=== PATIENT | female | born 1975 | race Caucasian/White ===

== ENCOUNTER → 2016-09-10 | Outpatient (REF) | payer OTHER | LOC: M SFHCWAGY 14:33 | PROVIDERS: ATTEND Nurse Practitioner Women's Health | DX: R87.810 Cervical high risk human papillomavirus (HPV) DNA test positive (principal); R87.610 Atypical squamous cells of undetermined significance on cytologic smear of cervix (ASC-US); R87.612 Low grade squamous intraepithelial lesion on cytologic smear of cervix (LGSIL) ==

== ENCOUNTER → 2016-09-17 | Outpatient (REF) | payer OTHER ==
[2016-09-17 11:34] LABS: MEAN CORPUSCULAR HEMOGLOBIN 29.5 pg (27.0-33.0); MEAN CORPUSCULAR HGB CONC 34.2 g/dl (32.0-36.5); MEAN CORPUSCULAR VOLUME 86.4 fl (80.0-96.0); RED CELL DISTRIBUTION WIDTH 12.8 % (11.5-14.5); WHITE BLOOD COUNT 6.5 K/mm3 (4.0-10.0)
[2016-09-17 12:05] LABS: ALBUMIN 3.7 GM/DL (3.2-5.2); ALBUMIN/GLOBULIN RATIO 1.16 (1.00-1.93); ALKALINE PHOSPHATASE 64 U/L (45-117); ALT/SGPT 17 U/L (12-78); ANION GAP 12 MEQ/L (8-16); AST/SGOT 7 U/L (15-37); BILIRUBIN,TOTAL 0.3 MG/DL (0.2-1.0); BLOOD UREA NITROGEN 7 MG/DL (7-18); CALCIUM LEVEL 8.8 MG/DL (8.5-10.1); CARBON DIOXIDE LEVEL 25 MEQ/L (21-32); CHLORIDE LEVEL 108 MEQ/L (98-107); CREATININE FOR GFR 0.88 MG/DL (0.55-1.02); GLOMERULAR FILTRATION RATE > 60.0 (>60); GLUCOSE, FASTING 88 MG/DL (70-105); POTASSIUM SERUM 4.2 MEQ/L (3.5-5.1); SODIUM LEVEL 145 MEQ/L (136-145); TOTAL PROTEIN 6.9 GM/DL (6.4-8.2)
== END ==
LOC: M SFHCPLAZ 08:09
PROVIDERS: ATTEND Nurse Practitioner Family
DX: D69.6 Thrombocytopenia, unspecified (principal); E88.81 Metabolic syndrome and other insulin resistance; E55.9 Vitamin D deficiency, unspecified

== ENCOUNTER → 2016-10-25 | Outpatient (CLI) | payer OTHER ==
--- NOTE | 2016-10-25 16:13 | REP ---
CERVICAL SPINE, SEVEN VIEWS: HISTORY: Neck pain. There is no acute fracture or subluxation. The intervertebral discs are normal in height. The neural foramina are patent. IMPRESSION: There is no acute fracture or subluxation. Signed by González Louie MD 10/25/2016 04:14 P
--- NOTE | 2016-10-25 16:15 | REP ---
THORACIC SPINE, THREE VIEWS: HISTORY: Back pain. There is no acute fracture or subluxation. The intervertebral discs are normal in height. IMPRESSION: There is no acute fracture or subluxation. Signed by González Louie MD 10/25/2016 04:19 P
== END ==
LOC: M WUC 14:16
PROVIDERS: ATTEND Nurse Practitioner Family
DX: M54.2 Cervicalgia (principal); M54.6 Pain in thoracic spine

== ENCOUNTER → 2017-01-23 | Outpatient (REF) | payer OTHER ==
[2017-01-23 12:29] LABS: ANION GAP 9 MEQ/L (8-16); BLOOD UREA NITROGEN 9 MG/DL (7-18); CALCIUM LEVEL 8.8 MG/DL (8.5-10.1); CARBON DIOXIDE LEVEL 24 MEQ/L (21-32); CHLORIDE LEVEL 108 MEQ/L (98-107); CHOLESTEROL LEVEL 136 MG/DL (<200); CREATININE FOR GFR 0.89 MG/DL (0.55-1.02); GLOMERULAR FILTRATION RATE > 60.0 (>60); GLUCOSE, FASTING 89 MG/DL (70-105); POTASSIUM SERUM 4.1 MEQ/L (3.5-5.1); SODIUM LEVEL 141 MEQ/L (136-145); TRIGLYCERIDES LEVEL 124 MG/DL (<150)
[2017-01-23 12:34] LABS: MEAN CORPUSCULAR HEMOGLOBIN 29.2 pg (27.0-33.0); MEAN CORPUSCULAR HGB CONC 33.6 g/dl (32.0-36.5); MEAN CORPUSCULAR VOLUME 86.7 fl (80.0-96.0); RED CELL DISTRIBUTION WIDTH 13.3 % (11.5-14.5); WHITE BLOOD COUNT 5.6 K/mm3 (4.0-10.0)
== END ==
LOC: M SFHCPLAZ 08:13
PROVIDERS: ATTEND Nurse Practitioner Family
DX: D69.6 Thrombocytopenia, unspecified (principal); E88.81 Metabolic syndrome and other insulin resistance

== ENCOUNTER → 2017-04-01 | Outpatient (REF) | payer OTHER ==
[2017-04-01 20:05] LABS: BASO % 0.3 % (0.0-1.0); IMMATURE GRANULOCYTE % 0.9 % (0-0); LYMPH # 2.7 10^3/uL (1.5-4.5); LYMPH % 26.5 % (24.0-44.0); MEAN CORPUSCULAR HEMOGLOBIN 28.2 pg (27.0-33.0); MEAN CORPUSCULAR VOLUME 85.7 fl (80.0-96.0); MONO # 0.8 10^3/uL (0.0-0.8); MONO % 7.6 % (0.0-5.0); NEUTROPHILS # 6.5 10^3/uL (1.8-7.7); NEUTROPHILS % 64.7 % (36.0-66.0); RED CELL DISTRIBUTION WIDTH 13.4 % (11.5-14.5); WHITE BLOOD COUNT 10.1 10^3/uL (4.0-10.0)
[2017-04-01 20:13] LABS: PLATELET COUNT, AUTOMATED 69 10^3/uL (150-450)
[2017-04-02 11:28] LABS: IMMATURE PLATELET FRACTION % 20.1 % (0.0-9.6)
== END ==
LOC: M SFHCPLAZ 16:14
PROVIDERS: ATTEND Nurse Practitioner Family
DX: D69.6 Thrombocytopenia, unspecified (principal); E88.81 Metabolic syndrome and other insulin resistance; E55.9 Vitamin D deficiency, unspecified

== ENCOUNTER → 2017-05-24 | Outpatient (CLI) | payer OTHER ==
[2017-05-24 19:36] LABS: BASO % 0.2 % (0.0-1.0); EOS % 0.1 % (0.0-3.0); IMMATURE GRANULOCYTE % 0.8 % (0-0); LYMPH # 2.5 10^3/uL (1.5-4.5); LYMPH % 30.2 % (24.0-44.0); MEAN CORPUSCULAR HEMOGLOBIN 28.4 pg (27.0-33.0); MEAN CORPUSCULAR VOLUME 83.7 fl (80.0-96.0); MONO # 0.7 10^3/uL (0.0-0.8); MONO % 8.3 % (0.0-5.0); NEUTROPHILS % 60.4 % (36.0-66.0); RED CELL DISTRIBUTION WIDTH 12.9 % (11.5-14.5); WHITE BLOOD COUNT 8.3 10^3/uL (4.0-10.0)
[2017-05-24 19:38] LABS: PLATELET COUNT, AUTOMATED 69 10^3/uL (150-450)
[2017-05-24 19:39] LABS: IMMATURE PLATELET FRACTION % 15.4 % (0.0-9.6)
== END ==
LOC: M WUC 17:34
PROVIDERS: ATTEND Internal Medicine Medical Oncology
DX: D69.6 Thrombocytopenia, unspecified (principal)

== ENCOUNTER → 2017-09-19 | Outpatient (REF) | payer BC ==
[2017-09-19 12:33] LABS: HEMATOCRIT 47.7 % (36.0-47.0); HEMOGLOBIN 15.9 g/dl (12.0-16.0); MEAN CORPUSCULAR HEMOGLOBIN 28.1 pg (27.0-33.0); MEAN CORPUSCULAR HGB CONC 33.3 g/dl (32.0-36.5); MEAN CORPUSCULAR VOLUME 84.3 fl (80.0-96.0); RED BLOOD COUNT 5.66 10^6/uL (4.00-5.40); RED CELL DISTRIBUTION WIDTH 13.3 % (11.5-14.5); WHITE BLOOD COUNT 7.1 10^3/uL (4.0-10.0)
[2017-09-19 12:38] LABS: PLATELET COUNT, AUTOMATED 81 10^3/uL (150-450)
[2017-09-19 12:40] LABS: IMMATURE PLATELET FRACTION % 17.2 % (0.0-9.6)
[2017-09-19 12:44] LABS: TOTAL 25(OH) VITAMIN D 97.2 NG/ML (30.0-100.0)
[2017-09-19 12:52] LABS: ALBUMIN 3.6 GM/DL (3.2-5.2); ALBUMIN/GLOBULIN RATIO 1.09 (1.00-1.93); ALKALINE PHOSPHATASE 75 U/L (45-117); ALT/SGPT 21 U/L (12-78); ANION GAP 9 MEQ/L (8-16); AST/SGOT 11 U/L (7-37); BILIRUBIN,TOTAL 0.3 MG/DL (0.2-1.0); BLOOD UREA NITROGEN 10 MG/DL (7-18); CALCIUM LEVEL 8.6 MG/DL (8.5-10.1); CARBON DIOXIDE LEVEL 25 MEQ/L (21-32); CHLORIDE LEVEL 107 MEQ/L (98-107); CREATININE FOR GFR 0.78 MG/DL (0.55-1.30); GLOMERULAR FILTRATION RATE > 60.0 (>58); GLUCOSE, FASTING 109 MG/DL (70-100); POTASSIUM SERUM 4.3 MEQ/L (3.5-5.1); SODIUM LEVEL 141 MEQ/L (136-145); TOTAL PROTEIN 6.9 GM/DL (6.4-8.2)
== END ==
LOC: M SFHCPLAZ 08:25
DX: D69.6 Thrombocytopenia, unspecified (principal); E55.9 Vitamin D deficiency, unspecified; E88.81 Metabolic syndrome and other insulin resistance
CPT/HCPCS: 80053

== ENCOUNTER → 2017-09-27 | Outpatient (CLI) | payer BC | LOC: M WHC 08:07 | DX: Z12.31 Encounter for screening mammogram for malignant neoplasm of breast (principal) ==

== ENCOUNTER → 2017-09-27 | Outpatient (REF) | payer BC ==
[2017-10-02 00:07] LABS: HPV HYBRID CAPTURE II Positive (Negative)
== END ==
LOC: M SFHCWAGY 08:09
DX: Z12.4 Encounter for screening for malignant neoplasm of cervix (principal)
CPT/HCPCS: G0123

== ENCOUNTER → 2017-11-25 | Outpatient (REF) | payer BC | LOC: M SFHCWAGY 15:46 | DX: N87.1 Moderate cervical dysplasia (principal) | CPT/HCPCS: 88304 ==

== ENCOUNTER → 2018-01-19 | Outpatient (CLI) | payer BC ==
[2018-01-19 17:23] LABS: BASO % 0.3 % (0.0-1.0); EOS % 0.1 % (0.0-3.0); HEMATOCRIT 46.1 % (36.0-47.0); HEMOGLOBIN 15.4 g/dl (12.0-15.5); IMMATURE GRANULOCYTE % 1.1 % (0-3.0); LYMPH # 2.6 10^3/uL (1.5-4.5); MEAN CORPUSCULAR HEMOGLOBIN 29.2 pg (27.0-33.0); MEAN CORPUSCULAR HGB CONC 33.4 g/dl (32.0-36.5); MEAN CORPUSCULAR VOLUME 87.5 fl (80.0-96.0); MONO # 0.7 10^3/uL (0.0-0.8); MONO % 7.7 % (0.0-5.0); NEUTROPHILS # 5.4 10^3/uL (1.8-7.7); NEUTROPHILS % 61.8 % (36.0-66.0); RED BLOOD COUNT 5.27 10^6/uL (4.00-5.40); RED CELL DISTRIBUTION WIDTH 13.4 % (11.5-14.5); WHITE BLOOD COUNT 8.8 10^3/uL (4.0-10.0)
[2018-01-19 17:24] LABS: PLATELET COUNT, AUTOMATED 62 10^3/uL (150-450)
[2018-01-19 17:25] LABS: IMMATURE PLATELET FRACTION % 18.2 % (0.0-9.6)
== END ==
LOC: M WUC 13:19
DX: N91.2 Amenorrhea, unspecified (principal)
CPT/HCPCS: 85049

== ENCOUNTER 2018-01-31 14:40 | Day surgery (SDC) | payer BC ==
[2018-01-31 15:20] LABS: HEMATOCRIT 47.9 % (36.0-47.0); HEMOGLOBIN 16.2 g/dl (12.0-15.5); MEAN CORPUSCULAR HEMOGLOBIN 29.1 pg (27.0-33.0); MEAN CORPUSCULAR HGB CONC 33.8 g/dl (32.0-36.5); MEAN CORPUSCULAR VOLUME 86.2 fl (80.0-96.0); RED BLOOD COUNT 5.56 10^6/uL (4.00-5.40); RED CELL DISTRIBUTION WIDTH 13.2 % (11.5-14.5); WHITE BLOOD COUNT 8.5 10^3/uL (4.0-10.0)
[2018-01-31] MEDS ORDERED: LIDOCAINE 2% INJ 100 MG/5 ML SDV (FOR ANES.) As Ordered (15:20)
[2018-01-31] MEDS ORDERED: ONDANSETRON 4MG/2ML VIAL (J2405) As Ordered (15:20)
[2018-01-31] MEDS ORDERED: MIDAZOLAM INJ 2 MG/2 ML VIAL (J2250) As Ordered (15:20)
[2018-01-31] MEDS ORDERED: KETOROLAC 60 MG/2 ML VIAL (J1885) As Ordered (15:20)
[2018-01-31] MEDS ORDERED: PROPOFOL 200 MG/20 ML VIAL As Ordered (15:20)
[2018-01-31] MEDS ORDERED: dexameTHASONE 4 MG/ML 1ML VIAL (J1100) As Ordered (15:20)
[2018-01-31] MEDS ORDERED: fentaNYL 100 MCG/2 ML INJECTION (J3010) As Ordered (15:21)
[2018-01-31 15:22] LABS: IMMATURE PLATELET FRACTION % 14.5 % (0.0-9.6); PLATELET COUNT, AUTOMATED 77 10^3/uL (150-450); PLATELET F 69
[2018-01-31] MEDS: LR 1,000 ML IV (15:29)
[2018-01-31 15:37] LABS: CONTROL LINE HCG INT CTR LINE PRESENT; HCG, SERUM QUALITATIVE NEGATIVE (NEGATIVE)
[2018-01-31] MEDS: IODINE STRONG SOLN 15 ML BTL As Ordered (16:35)
[2018-01-31] MEDS: LIDOCAINE W/EPINEPHRINE 1% 20ML VIAL As Ordered (16:51)
[2018-01-31] MEDS: SILVER NITRATE APPLICATOR As Ordered (16:51)
[2018-01-31] MEDS ORDERED: SILVER NITRATE APPLICATOR As Ordered (17:07)
[2018-01-31] MEDS ORDERED: LR 1,000 ML IV ×2 (17:30)
[2018-01-31] MEDS: PERCOCET 5MG/325MG TAB PO (17:30)
[2018-01-31] MEDS ORDERED: fentaNYL 100 MCG/2 ML INJECTION (J3010) IV (17:30)
[2018-01-31] MEDS ORDERED: ONDANSETRON 4MG/2ML VIAL (J2405) IV (17:30)
== END 2018-01-31 18:15 | disposition home or self-care (01) ==
LOC: M SDC 14:40
DX: N87.1 Moderate cervical dysplasia (principal); D69.6 Thrombocytopenia, unspecified; K59.09 Other constipation; M54.2 Cervicalgia; F41.9 Anxiety disorder, unspecified; F32.9 Major depressive disorder, single episode, unspecified; G43.909 Migraine, unspecified, not intractable, without status migrainosus; J45.909 Unspecified asthma, uncomplicated; Z88.6 Allergy status to analgesic agent; Z88.8 Allergy status to other drugs, medicaments and biological substances; Z79.899 Other long term (current) drug therapy; Z72.0 Tobacco use
CPT/HCPCS: 57461

== ENCOUNTER → 2018-01-31 | Outpatient (CLI) | payer BC ==
[2018-01-31 14:01] LABS: VITAMIN B12 LEVEL 250 PG/ML
[2018-01-31 14:02] LABS: FOLATE 9.5 NG/ML
[2018-01-31 14:07] LABS: ALBUMIN 3.8 GM/DL (3.2-5.2); ALBUMIN/GLOBULIN RATIO 1.06 (1.00-1.93); ALKALINE PHOSPHATASE 84 U/L (45-117); ALT/SGPT 21 U/L (12-78); ANION GAP 9 MEQ/L (8-16); AST/SGOT 9 U/L (7-37); BILIRUBIN,TOTAL 0.2 MG/DL (0.2-1.0); BLOOD UREA NITROGEN 6 MG/DL (7-18); CALCIUM LEVEL 8.6 MG/DL (8.5-10.1); CARBON DIOXIDE LEVEL 25 MEQ/L (21-32); CHLORIDE LEVEL 106 MEQ/L (98-107); CREATININE FOR GFR 0.85 MG/DL (0.55-1.30); GLOMERULAR FILTRATION RATE > 60.0 (>58); GLUCOSE, FASTING 123 MG/DL (70-100); POTASSIUM SERUM 4.2 MEQ/L (3.5-5.1); SODIUM LEVEL 140 MEQ/L (136-145); TOTAL PROTEIN 7.4 GM/DL (6.4-8.2)
[2018-02-06 08:11] LABS: CERULOPLASMIN 33.4 mg/dL (19.0-39.0); COPPER PLASMA 132 ug/dL (72-166); LEAD BLOOD ADULT 1 ug/dL (0-19); MERCURY LEVEL None Detected ug/L (0.0-14.9); VITAMIN B1 LEVEL WHOLE BLOOD 111.2 nmol/L (66.5-200.0); VITAMIN B6,PYRIDOXAL PHOSPHATE 2.2 ug/L (2.0-32.8); VITAMIN E(ALPHA TOCOPHEROL) 11.3 mg/L (7.0-25.1); VITAMIN E(GAMMA TOCOPHEROL) 1.4 mg/L (0.5-5.5)
== END ==
LOC: M SMT 08:15
DX: R25.1 Tremor, unspecified (principal); R41.3 Other amnesia
CPT/HCPCS: 82525

== ENCOUNTER → 2018-05-17 | Outpatient (CLI) | payer BC ==
[2018-05-17 18:02] LABS: BASO % 0.2 % (0.0-1.0); HEMOGLOBIN 15.8 g/dl (12.0-15.5); IMMATURE GRANULOCYTE % 0.6 % (0-3.0); LYMPH # 2.4 10^3/uL (1.5-4.5); LYMPH % 25.2 % (24.0-44.0); MEAN CORPUSCULAR HEMOGLOBIN 28.1 pg (27.0-33.0); MEAN CORPUSCULAR HGB CONC 32.9 g/dl (32.0-36.5); MEAN CORPUSCULAR VOLUME 85.3 fl (80.0-96.0); MONO # 0.6 10^3/uL (0.0-0.8); MONO % 6.6 % (0.0-5.0); NEUTROPHILS # 6.3 10^3/uL (1.8-7.7); NEUTROPHILS % 67.4 % (36.0-66.0); RED BLOOD COUNT 5.63 10^6/uL (4.00-5.40); RED CELL DISTRIBUTION WIDTH 13.3 % (11.5-14.5); WHITE BLOOD COUNT 9.4 10^3/uL (4.0-10.0)
[2018-05-17 18:11] LABS: LDH LACTATE DEHYDROGENASE 187 U/L (84-246)
[2018-05-17 18:44] LABS: PLATELET COUNT, AUTOMATED 83 10^3/uL (150-450)
[2018-05-17 18:45] LABS: IMMATURE PLATELET FRACTION % 14.1 % (0.0-9.6)
== END ==
LOC: M WUC 12:18
DX: D69.6 Thrombocytopenia, unspecified (principal)
CPT/HCPCS: 83615

== ENCOUNTER → 2018-08-11 | Outpatient (CLI) | payer BC ==
[~2018-08-11] MED LIST: ACET30TAB PO; BUTACAP78 PO; DESV100T3 PO; DRIS50003 PO; TOPA200T7 PO; TRAZ10TA PO
--- NOTE | 2018-08-12 06:04 | REP ---
Clinical: Polycythemia and thrombocytopenia. Technique: Real time garcia scale ultrasound examination using curved array transducer. Findings: Liver, spleen, and pancreas are normal in contour, size, echogenicity and overall appearance. No hepatic, pancreatic, or splenic lesions are identified. Spleen measures 11.6 cm maximal length. Gallbladder is normal and without gallstones, wall thickening, or pericholecystic fluid. No biliary ductal dilatation is appreciated and the common bile duct measures 3.1 mm diameter. The bilateral kidneys are normal in reniform shape without hydronephrosis. Right kidney measures 11.3 x 4.3 x 3.2 cm with suggestions for duplicated collecting system. Left kidney measures 11.1 x 4.7 x 4.7 cm. Abdominal aorta is normal and measures 1.7 cm maximal diameter. No ascites. Impression: Essentially normal complete abdominal ultrasound. 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 Electronically Signed by John Wihte MD 08/12/2018 05:56 A
== END ==
LOC: M RAD 07:41
PROVIDERS: ATTEND Nurse Practitioner Family
DX: D69.6 Thrombocytopenia, unspecified (principal)

== ENCOUNTER 2018-10-24 10:58 | Day surgery (SDC) | payer BC ==
[~2018-10-24] VITALS: Ht 167.6 cm; Wt 68.9 kg
[~2018-10-24 10:58] MED LIST changes: +ACET-716 PO; -ACET30TAB PO; +NS 1,000 ML IV ONE
[2018-10-24] MEDS ORDERED: PROPOFOL 200 MG/20 ML VIAL As Ordered ONE (13:31)
[2018-10-24] MEDS ORDERED: fentaNYL 100 MCG/2 ML INJECTION (J3010) As Ordered ONE (13:31)
[2018-10-24] MEDS ORDERED: LIDOCAINE 2% INJ 100 MG/5 ML SDV (FOR ANES.) As Ordered ONE (13:31)
--- NOTE | 2018-10-24 13:41 | ROOR ---
Patient Name: Alexis Gallegos Procedure Date: 10/24/2018 1:27 PM Date of : 1975 Age: 43 Room: [facility] Gender: Female Note Status: Finalized Procedure: Upper GI endoscopy Indications: Iron deficiency anemia Providers: Zack SCHAFFER MD Referring MD: Tia Sykes NP Requesting Provider: Medicines: Monitored Anesthesia Care Complications: No immediate complications. Procedure: Pre-Anesthesia Assessment: - The heart rate, respiratory rate, oxygen saturations, blood pressure, adequacy of pulmonary ventilation, and response to care were monitored throughout the procedure. The Endoscope was introduced through the mouth, and advanced to the second part of duodenum. The upper GI endoscopy was accomplished without difficulty. The patient tolerated the procedure well. Findings: Diffuse mildly erythematous mucosa without bleeding was found in the gastric antrum. This was biopsied with a cold forceps for histology. The exam of the stomach was otherwise normal. The examined esophagus was normal. The examined duodenum was normal. Biopsies for histology were taken with a cold forceps for evaluation of celiac disease. Impression: - Essentially normal stomach with erythematous mucosa in the antrum. Biopsied. - Normal esophagus. - Normal examined duodenum. Biopsied. Recommendation: - Await pathology results. - Observe patient's clinical course. Zack Schaffer MD Zcak SCHAFFER MD 10/24/2018 1:40:54 PM Electronically signed by Zack SCHAFFER MD Number of Addenda: 0 Note Initiated On: 10/24/2018 1:27 PM Estimated Blood Loss: Estimated blood loss: none.
--- NOTE | 2018-10-24 13:58 | ROOR ---
Patient Name: Alexis Gallegos Procedure Date: 10/24/2018 1:28 PM Date of : 1975 Age: 43 Room: [facility] Gender: Female Note Status: Finalized Procedure: Colonoscopy Indications: Iron deficiency anemia, Incidental constipation noted Providers: Zack SCHAFFER MD Referring MD: Tia Sykes NP Requesting Provider: Medicines: Monitored Anesthesia Care Complications: No immediate complications. Procedure: Pre-Anesthesia Assessment: - The heart rate, respiratory rate, oxygen saturations, blood pressure, adequacy of pulmonary ventilation, and response to care were monitored throughout the procedure. The Colonoscope was introduced through the anus and advanced to 8 cm into the ileum. The colonoscopy was performed without difficulty. The patient tolerated the procedure well. The quality of the bowel preparation was good. Findings: The perianal and digital rectal examinations were normal. Two sessile polyps were found in the sigmoid colon and ascending colon. The polyps were 3 to 5 mm in size. These polyps were removed with a cold snare. Resection and retrieval were complete. Small Internal Hemorrhoids. The exam was otherwise without abnormality on direct and retroflexion views. Impression: - Two 3 to 5 mm polyps in the sigmoid colon and in the ascending colon, removed with a cold snare. Resected and retrieved. - Small Internal Hemorrhoids. - The examination was otherwise normal on direct and retroflexion views. Recommendation: - Await pathology results. - Repeat colonoscopy in 5 years for surveillance. - Telephone endoscopist for pathology results in 2 weeks. Zack Schaffer MD Zack SCHAFFER MD 10/24/2018 1:58:43 PM Electronically signed by Zack SCHAFFER MD Number of Addenda: 0 Note Initiated On: 10/24/2018 1:28 PM Estimated Blood Loss: Estimated blood loss: none.
[2018-10-24 14:20] VITALS: BP 130/71
== END 2018-10-24 14:30 | disposition home or self-care (01) ==
LOC: M OPP 10:58
PROVIDERS: ATTEND Internal Medicine Gastroenterology
DX: D12.5 Benign neoplasm of sigmoid colon (principal); D12.2 Benign neoplasm of ascending colon; D50.9 Iron deficiency anemia, unspecified; K31.89 Other diseases of stomach and duodenum; K64.8 Other hemorrhoids; D69.3 Immune thrombocytopenic purpura; Z79.899 Other long term (current) drug therapy; Z88.8 Allergy status to other drugs, medicaments and biological substances; F17.210 Nicotine dependence, cigarettes, uncomplicated
CPT/HCPCS: 43239; 45385; 88305; J3010

== ENCOUNTER → 2018-11-19 | Outpatient (CLI) | payer BC ==
[~2018-11-19] MED LIST changes: -NS 1,000 ML IV ONE
--- NOTE | 2018-11-19 16:21 | REPMRS ---
Patient History The patient states she had a clinical breast exam in 11/2018. Family history of breast cancer under age 50 in maternal aunt, prostate cancer and colorectal cancer in maternal grandfather. Taking hormonal contraceptives for 4 years. Digital Woman Screen Mammo: November 19, 2018 - Exam #: [id number] Bilateral CC and MLO view(s) were taken. Technologist: Bree Linares, Technologist Prior study comparison: September 27, 2017, digital woman screen mammo performed at [facility]. March 2013, digital mammo diagnostic bilateral, performed at [facility]. FINDINGS: There are scattered fibroglandular densities. There has been no change in the appearance of the mammogram from the prior studies. There is a mild amount of scattered fibroglandular density which is fairly symmetric. There is no interval development of dominant mass, architectural distortion, or clustered microcalcification suggestive of malignancy. 3-D tomosynthesis shows no additional findings. Assessment: BI-RADS/ACR category 1 mammogram. Negative Mammogram. Recommendation Routine screening mammogram of both breasts in 1 year (for women over age 40). This patient's Lifetime Breast Cancer RIsk is estimated at 14.5 %. This mammogram was interpreted with the aid of an FDA-approved computer-aided dectection system. Electronically Signed By: Colby Rust MD 11/19/18 [id number]
== END ==
LOC: M WHC 14:50
PROVIDERS: ATTEND Nurse Practitioner Family
DX: Z12.31 Encounter for screening mammogram for malignant neoplasm of breast (principal); Z79.3 Long term (current) use of hormonal contraceptives

== ENCOUNTER → 2018-11-19 | Outpatient (REF) | payer BC ==
[2018-11-22 14:30] LABS: HPV HYBRID CAPTURE II Positive (Negative)
== END ==
LOC: M SFHCWAGY 15:08
PROVIDERS: ATTEND Nurse Practitioner Family
DX: Z12.4 Encounter for screening for malignant neoplasm of cervix (principal)
CPT/HCPCS: 87624; G0123

== ENCOUNTER → 2018-12-23 | Outpatient (CLI) | payer BC ==
[2018-12-23 20:21] LABS: BASO % 0.4 % (0.0-1.0); HEMOGLOBIN 16.2 g/dl (12.0-15.5); LYMPH # 2.3 10^3/uL (1.5-4.5); LYMPH % 27.4 % (24.0-44.0); MEAN CORPUSCULAR HEMOGLOBIN 29.6 pg (27.0-33.0); MEAN CORPUSCULAR HGB CONC 33.8 g/dl (32.0-36.5); MEAN CORPUSCULAR VOLUME 87.8 fl (80.0-96.0); MONO # 0.5 10^3/uL (0.0-0.8); MONO % 6.1 % (0.0-5.0); NEUTROPHILS # 5.5 10^3/uL (1.8-7.7); RED BLOOD COUNT 5.47 10^6/uL (4.00-5.40); WHITE BLOOD COUNT 8.4 10^3/uL (4.0-10.0)
[2018-12-23 20:26] LABS: ALBUMIN 3.7 GM/DL (3.2-5.2); ALT/SGPT 27 U/L (12-78); BILIRUBIN,TOTAL 0.3 MG/DL (0.2-1.0); BLOOD UREA NITROGEN 8 MG/DL (7-18); CALCIUM LEVEL 8.5 MG/DL (8.5-10.1); CARBON DIOXIDE LEVEL 27 MEQ/L (21-32); CHLORIDE LEVEL 107 MEQ/L (98-107); CREATININE FOR GFR 0.78 MG/DL (0.55-1.30); GLOMERULAR FILTRATION RATE > 60.0 (>58); GLUCOSE, FASTING 80 MG/DL (70-100); POTASSIUM SERUM 3.7 MEQ/L (3.5-5.1); SODIUM LEVEL 139 MEQ/L (136-145); TOTAL PROTEIN 7.1 GM/DL (6.4-8.2)
[2018-12-23 20:30] LABS: PLATELET COUNT, AUTOMATED 65 10^3/uL (150-450)
[2018-12-24 10:21] LABS: TOTAL 25(OH) VITAMIN D 31.3 NG/ML (30.0-100.0)
== END ==
LOC: M WUC 17:14
PROVIDERS: ATTEND Nurse Practitioner Family
DX: E55.9 Vitamin D deficiency, unspecified (principal); D69.6 Thrombocytopenia, unspecified; E88.81 Metabolic syndrome and other insulin resistance

== ENCOUNTER → 2019-03-30 | Outpatient (REF) | payer BC | LOC: M SFHCWAGY 14:31 | PROVIDERS: ATTEND Nurse Practitioner Women's Health | DX: R87.810 Cervical high risk human papillomavirus (HPV) DNA test positive (principal); Z98.890 Other specified postprocedural states ==

== ENCOUNTER → 2019-04-14 | Outpatient (CLI) | payer BC ==
[2019-04-14 21:00] LABS: BASO % 0.3 % (0.0-1.0); HEMATOCRIT 48.2 % (36.0-47.0); HEMOGLOBIN 16.1 g/dl (12.0-15.5); LYMPH # 2.6 10^3/uL (1.5-5.0); LYMPH % 27.3 % (24.0-44.0); MEAN CORPUSCULAR HEMOGLOBIN 29.1 pg (27.0-33.0); MEAN CORPUSCULAR HGB CONC 33.4 g/dl (32.0-36.5); MEAN CORPUSCULAR VOLUME 87.2 fl (80.0-96.0); MONO # 0.8 10^3/uL (0.0-0.8); MONO % 8.1 % (0.0-5.0); NEUTROPHILS % 63.6 % (36.0-66.0); RED BLOOD COUNT 5.53 10^6/uL (4.00-5.40); WHITE BLOOD COUNT 9.5 10^3/uL (4.0-10.0)
[2019-04-14 21:06] LABS: PLATELET COUNT, AUTOMATED 78 10^3/uL (150-450)
== END ==
LOC: M WUC 17:20
PROVIDERS: ATTEND Internal Medicine Hematology & Oncology
DX: D69.3 Immune thrombocytopenic purpura (principal)

== ENCOUNTER → 2019-06-28 | Outpatient (CLI) | payer BC ==
[2019-06-28 13:21] LABS: HEMATOCRIT 48.1 % (36.0-47.0); HEMOGLOBIN 15.2 g/dl (12.0-15.5); MEAN CORPUSCULAR HEMOGLOBIN 28.4 pg (27.0-33.0); MEAN CORPUSCULAR HGB CONC 31.6 g/dl (32.0-36.5); MEAN CORPUSCULAR VOLUME 89.9 fl (80.0-96.0); RED BLOOD COUNT 5.35 10^6/uL (4.00-5.40); WHITE BLOOD COUNT 7.7 10^3/uL (4.0-10.0)
[2019-06-28 13:27] LABS: ALBUMIN 3.3 GM/DL (3.2-5.2); ALT/SGPT 15 U/L (12-78); BILIRUBIN,TOTAL 0.4 MG/DL (0.2-1.0); BLOOD UREA NITROGEN 14 MG/DL (7-18); CALCIUM LEVEL 8.5 MG/DL (8.5-10.1); CARBON DIOXIDE LEVEL 25 MEQ/L (21-32); CHLORIDE LEVEL 111 MEQ/L (98-107); CHOLESTEROL LEVEL 142 MG/DL (<200); CHOLESTEROL RISK RATIO 3.641 (<5); CREATININE FOR GFR 0.85 MG/DL (0.55-1.30); GLOMERULAR FILTRATION RATE > 60.0 (>58); GLUCOSE, FASTING 101 MG/DL (70-100); HDL CHOLESTEROL 39 MG/DL (>40); LDL CHOLESTEROL 70 MG/DL (<100); NON-HDL-C 103 MG/DL; POTASSIUM SERUM 4.4 MEQ/L (3.5-5.1); SODIUM LEVEL 142 MEQ/L (136-145); TOTAL PROTEIN 6.3 GM/DL (6.4-8.2); TRIGLYCERIDES LEVEL 163 MG/DL (<150)
[2019-06-28 14:01] LABS: PLATELET COUNT, AUTOMATED 79 10^3/uL (150-450)
[2019-06-29 10:04] LABS: FOLATE 4.9 NG/ML; TOTAL 25(OH) VITAMIN D 42.6 NG/ML (30.0-100.0); VITAMIN B12 LEVEL 141 PG/ML
== END ==
LOC: M WUC 08:42
PROVIDERS: ATTEND Nurse Practitioner Family
DX: D69.6 Thrombocytopenia, unspecified (principal); E88.81 Metabolic syndrome and other insulin resistance; E78.1 Pure hyperglyceridemia; E55.9 Vitamin D deficiency, unspecified

== ENCOUNTER → 2019-07-10 | Outpatient (CLI) | payer BC ==
[~2019-07-10] MED LIST changes: +DEPO150I IM; +LINZ72CA PO; +VITA50005 PO
--- NOTE | 2019-07-10 11:47 | REP ---
Clinical: Abnormal vaginal bleeding. Technique: Transabdominal pelvic ultrasound followed by transvaginal examination for better evaluation of the endometrium and adnexa with color Doppler evaluation of the ovaries. Findings: The bladder is normal and measures 11.8 x 7.9 x 9.9 cm. Heterogeneous anteverted uterus measures 7.0 x 3.4 x 5.7 cm. Endometrial complex measures 3.6 mm thickness. The bilateral ovaries are normal in vascularity without evidence for torsion. Right ovary measures 2.4 x 1.2 x 1.3 cm (RI 0.59) and includes 1.2 cm simple cyst. Left ovary measures 4.4 x 1.9 x 2.7 cm (RI 0.60) and includes 3.3 x 2.2 x 2.7 cm cyst. No pelvic fluid or adnexal mass lesion. Impression: Heterogeneous anteverted uterus. Ovaries demonstrate solitary cysts without torsion. Electronically Signed by John White MD 07/10/2019 11:38 A
== END ==
LOC: M RAD 09:40
PROVIDERS: ATTEND Obstetrics & Gynecology
DX: N93.9 Abnormal uterine and vaginal bleeding, unspecified (principal); N83.201 Unspecified ovarian cyst, right side; N83.202 Unspecified ovarian cyst, left side

== ENCOUNTER 2019-07-24 06:17 | Day surgery (SDC) | payer BC ==
[~2019-07-24] VITALS: Ht 167.6 cm; Wt 69.4 kg
[~2019-07-24 06:17] MED LIST changes: +LIDOCAINE 1% MDV 20ML VIAL SQ PRN; +LR 1,000 ML IV ONE; -TRAZ10TA PO; +TRAZ1TAB12 PO; +ceFAZolin SOD 2 GM in IV 1 EA IV ONE
[2019-07-24 06:43] LABS: HEMATOCRIT 50.2 % (36.0-47.0); HEMOGLOBIN 16.2 g/dl (12.0-15.5); MEAN CORPUSCULAR HEMOGLOBIN 28.4 pg (27.0-33.0); MEAN CORPUSCULAR HGB CONC 32.3 g/dl (32.0-36.5); MEAN CORPUSCULAR VOLUME 88.1 fl (80.0-96.0); PLATELET COUNT, AUTOMATED 107 10^3/uL (150-450); WHITE BLOOD COUNT 7.3 10^3/uL (4.0-10.0)
[2019-07-24] MEDS ORDERED: METHYLENE BLUE 0.5% (5MG/ML) 10 ML AMP (PROVAYBLUE)(Q9968 PER 1MG) As Ordered ONE (07:08)
[2019-07-24] MEDS ORDERED: BUPIVACAINE HCL 0.25% 30 ML VIAL As Ordered ONE (07:08)
[2019-07-24 07:16] LABS: HCG, SERUM QUALITATIVE NEGATIVE (NEGATIVE)
[2019-07-24] MEDS ORDERED: ONDANSETRON 4MG/2ML VIAL (J2405) As Ordered ONE (07:51)
[2019-07-24] MEDS ORDERED: LIDOCAINE 2% INJ 100 MG/5 ML SDV (FOR ANES.) As Ordered ONE (07:51)
[2019-07-24] MEDS ORDERED: ROCURONIUM BROMIDE 50 MG/5 ML VIAL As Ordered ONE (07:51)
[2019-07-24] MEDS ORDERED: MIDAZOLAM INJ 2 MG/2 ML VIAL (J2250) As Ordered ONE (07:51)
[2019-07-24] MEDS ORDERED: propofoL 200 MG/20 ML VIAL As Ordered ONE (07:51)
[2019-07-24] MEDS ORDERED: HYDROmorphone HCL 2 MG/ML 1ML VIAL (J1170) As Ordered ONE (07:51)
[2019-07-24] MEDS ORDERED: fentaNYL 100 MCG/2 ML INJECTION (J3010) As Ordered ONE (07:51)
[2019-07-24] MEDS ORDERED: ACETAMINOPHEN 1000MG 100ML IV BTL (OFIRMEV) (J0131 PER 10MG) As Ordered ONE (07:51)
[2019-07-24] MEDS ORDERED: dexameTHASONE 4 MG/ML 1ML VIAL (J1100) As Ordered ONE (07:51)
[2019-07-24] MEDS ORDERED: ePHEDrine SULFATE 25 MG/5 ML(5MG/ML) SYRINGE As Ordered ONE (08:08)
[2019-07-24] MEDS ORDERED: SUGAMMADEX SODIUM 500 MG/5 ML VIAL (BRIDION) As Ordered ONE (08:37)
[2019-07-24] MEDS ORDERED: DOCUSATE SODIUM 100 MG CAP PO SCH (09:00)
[2019-07-24] MEDS ORDERED: LR 1,000 ML IV SCH ×2 (09:48→10:00)
[2019-07-24] MEDS ORDERED: HYDROMORPHONE HCL 0.5 MG/ 0.5 ML SYRINGE (J1170 PER 1) IV PRN (10:00)
[2019-07-24] MEDS ORDERED: ONDANSETRON 4 MG TAB (S0181) PO PRN (10:00)
[2019-07-24] MEDS ORDERED: PERCOCET 5MG/325MG TAB PO PRN ×2 (10:00)
[2019-07-24] MEDS ORDERED: PROMETHAZINE INJ 25 MG/ML VIAL (J2550) IV PRN (10:00)
[2019-07-24] MEDS ORDERED: ONDANSETRON 4MG/2ML VIAL (J2405) IV PRN (10:00)
[2019-07-24] MEDS ORDERED: fentaNYL 100 MCG/2 ML INJECTION (J3010) IV PRN (10:00)
[2019-07-24] MEDS ORDERED: oxyCODONE 5MG TAB PO PRN (10:00)
[2019-07-24] MEDS ORDERED: METOCLOPRAMIDE INJ 10MG/2ML VIAL (J2765) IV PRN (10:00)
[2019-07-24 10:25] VITALS: BP 110/70
[2019-07-24 10:55] VITALS: BP 106/71
[2019-07-24 11:55] VITALS: BP 110/68
[2019-07-24 12:55] VITALS: BP_SYST 108; BP_SYST 114; BP_DIAS 70
[2019-07-24 15:00] VITALS: BP 111/78
[2019-07-24] MEDS ORDERED: PERCOCET PO (15:29)
[2019-07-24] MEDS ORDERED: traZODone 100 MG TAB PO SCH (21:00)
== END 2019-07-24 16:30 | disposition home or self-care (01) ==
LOC: M SDC 06:17 → M PED 10:25 → M SDC 16:30
PROVIDERS: ATTEND Obstetrics & Gynecology
DX: N87.9 Dysplasia of cervix uteri, unspecified (principal); Q50.5 Embryonic cyst of broad ligament; G43.909 Migraine, unspecified, not intractable, without status migrainosus; K76.0 Fatty (change of) liver, not elsewhere classified; D69.3 Immune thrombocytopenic purpura; K59.09 Other constipation; N81.10 Cystocele, unspecified; F41.9 Anxiety disorder, unspecified; F32.9 Major depressive disorder, single episode, unspecified; F17.210 Nicotine dependence, cigarettes, uncomplicated; Z88.8 Allergy status to other drugs, medicaments and biological substances; Z79.899 Other long term (current) drug therapy
CPT/HCPCS: 36415; 58571; 58662; 84703; 85027; 86850; 86900; 86901; 88307; 96360; 96361; J0131; J0690; J1100; J1170; J2250; J2405; J3010

== ENCOUNTER → 2019-10-09 | Outpatient (CLI) | payer BC ==
[~2019-10-09] MED LIST changes: -LIDOCAINE 1% MDV 20ML VIAL SQ PRN; -LR 1,000 ML IV ONE; +PERCOCET PO; -ceFAZolin SOD 2 GM in IV 1 EA IV ONE
[2019-10-09 20:24] LABS: BASO % 0.2 % (0.0-1.0); HEMATOCRIT 47.1 % (36.0-47.0); HEMOGLOBIN 15.7 g/dl (12.0-15.5); LYMPH # 2.5 10^3/uL (1.5-5.0); LYMPH % 28.3 % (24.0-44.0); MEAN CORPUSCULAR HEMOGLOBIN 29.4 pg (27.0-33.0); MEAN CORPUSCULAR HGB CONC 33.3 g/dl (32.0-36.5); MEAN CORPUSCULAR VOLUME 88.2 fl (80.0-96.0); MONO # 0.7 10^3/uL (0.0-0.8); MONO % 8.5 % (0.0-5.0); NEUTROPHILS # 5.4 10^3/uL (1.5-8.5); PLATELET COUNT, AUTOMATED 43 10^3/uL (150-450); RED BLOOD COUNT 5.34 10^6/uL (4.00-5.40); WHITE BLOOD COUNT 8.7 10^3/uL (4.0-10.0)
[2019-10-12 09:52] LABS: FOLATE > 24.0 NG/ML (>5.4); VITAMIN B12 LEVEL 612 PG/ML (247-911)
== END ==
LOC: M WUC 17:41
PROVIDERS: ATTEND Nurse Practitioner Family
DX: E53.8 Deficiency of other specified B group vitamins (principal)

== ENCOUNTER → 2019-11-21 | Outpatient (CLI) | payer BC ==
[2019-11-21 17:19] LABS: HEMATOCRIT 46.6 % (36.0-47.0); HEMOGLOBIN 15.9 g/dl (12.0-15.5); MEAN CORPUSCULAR HEMOGLOBIN 29.9 pg (27.0-33.0); MEAN CORPUSCULAR HGB CONC 34.1 g/dl (32.0-36.5); MEAN CORPUSCULAR VOLUME 87.8 fl (80.0-96.0); RED BLOOD COUNT 5.31 10^6/uL (4.00-5.40); WHITE BLOOD COUNT 9.7 10^3/uL (4.0-10.0)
[2019-11-21 17:21] LABS: PLATELET COUNT, AUTOMATED 55 10^3/uL (150-450)
[2019-11-23 11:23] LABS: FOLATE 15.1 NG/ML; TOTAL 25(OH) VITAMIN D 32.4 NG/ML (30.0-100.0)
== END ==
LOC: M WUC 15:04
PROVIDERS: ATTEND Nurse Practitioner Family
DX: D69.6 Thrombocytopenia, unspecified (principal); E53.8 Deficiency of other specified B group vitamins; E55.9 Vitamin D deficiency, unspecified

== ENCOUNTER → 2019-12-18 | Outpatient (CLI) | payer BC ==
[~2019-12-18] MED LIST changes: +CVS5000S2 PO; +FOLI1TAB11; +GALC120S; +TOPI100T9
--- NOTE | 2019-12-18 17:02 | REPMRS ---
Patient History The patient states she had a clinical breast exam in December 2019. Family history of breast cancer under age 50 in maternal aunt, prostate cancer and colorectal cancer in maternal grandfather. Took hormonal contraceptives for 4 years. 3D TOMOSYNTHESIS WAS PERFORMED. The Case [place] lifetime risk for breast cancer is 14.3%. VOLPARA DENSITY B. Digital Woman Screen Mammo: December 18, 2019 - Exam #: [id number] Bilateral CC and MLO view(s) were taken. Technologist: Erica Livingston, Technologist Prior study comparison: November 19, 2018, bilateral digital woman screen mammo performed at [facility]. September 27, 2017, digital woman screen mammo performed at [facility]. FINDINGS: There are scattered fibroglandular densities. There has been no change in the appearance of the mammogram from the prior studies. There is a mild amount of residual fibroglandular tissue which is fairly symmetric. There is no interval development of dominant mass, architectural distortion, or clustered microcalcification suggestive of malignancy. Assessment: BI-RADS/ACR category 1 mammogram. Negative Mammogram. Recommendation Routine screening mammogram in 1 year (for women over age 40). This mammogram was interpreted with the aid of an FDA-approved computer-aided dectection system. Electronically Signed By: Caleb Mullen MD 12/18/19 [id number]
== END ==
LOC: M WHC 15:07
PROVIDERS: ATTEND Nurse Practitioner Family
DX: Z12.31 Encounter for screening mammogram for malignant neoplasm of breast (principal)

== ENCOUNTER → 2020-05-30 | Outpatient (CLI) | payer BC ==
[2020-05-30 19:57] LABS: HEMOGLOBIN 16.6 g/dl (12.0-15.5); MEAN CORPUSCULAR HEMOGLOBIN 28.5 pg (27.0-33.0); MEAN CORPUSCULAR HGB CONC 32.5 g/dl (32.0-36.5); MEAN CORPUSCULAR VOLUME 87.5 fl (80.0-96.0); RED BLOOD COUNT 5.83 10^6/uL (4.00-5.40); WHITE BLOOD COUNT 12.6 10^3/uL (4.0-10.0)
[2020-05-30 20:08] LABS: PLATELET COUNT, AUTOMATED 39 10^3/uL (150-450)
[2020-05-30 20:12] LABS: FOLATE 7.8 NG/ML (>5.4); TOTAL 25(OH) VITAMIN D 33.1 NG/ML (30.0-100.0); VITAMIN B12 LEVEL > 2000 PG/ML (247-911)
== END ==
LOC: M WUC 16:20
PROVIDERS: ATTEND Nurse Practitioner Family
DX: E53.8 Deficiency of other specified B group vitamins (principal); E55.9 Vitamin D deficiency, unspecified

== ENCOUNTER → 2020-05-30 | Outpatient (CLI) | payer BC ==
[2020-05-30 19:56] LABS: BASO % 0.3 % (0.0-1.0); HEMATOCRIT 49.6 % (36.0-47.0); HEMOGLOBIN 16.1 g/dl (12.0-15.5); LYMPH # 2.7 10^3/uL (1.5-5.0); MEAN CORPUSCULAR HEMOGLOBIN 28.1 pg (27.0-33.0); MEAN CORPUSCULAR HGB CONC 32.5 g/dl (32.0-36.5); MEAN CORPUSCULAR VOLUME 86.7 fl (80.0-96.0); MONO # 0.7 10^3/uL (0.0-0.8); MONO % 5.8 % (0.0-5.0); NEUTROPHILS # 8.6 10^3/uL (1.5-8.5); NEUTROPHILS % 70.7 % (36.0-66.0); RED BLOOD COUNT 5.72 10^6/uL (4.00-5.40); WHITE BLOOD COUNT 12.2 10^3/uL (4.0-10.0)
[2020-05-30 20:02] LABS: ALBUMIN 3.8 GM/DL (3.2-5.2); ALT/SGPT 16 U/L (12-78); BILIRUBIN,TOTAL 0.3 MG/DL (0.2-1.0); BLOOD UREA NITROGEN 6 MG/DL (7-18); CARBON DIOXIDE LEVEL 26 MEQ/L (21-32); CHLORIDE LEVEL 105 MEQ/L (98-107); CREATININE FOR GFR 0.87 MG/DL (0.55-1.30); GLOMERULAR FILTRATION RATE > 60.0 (>58); GLUCOSE, FASTING 88 MG/DL (70-100); POTASSIUM SERUM 3.4 MEQ/L (3.5-5.1); SODIUM LEVEL 138 MEQ/L (136-145); TOTAL PROTEIN 7.2 GM/DL (6.4-8.2)
[2020-05-30 20:06] LABS: PLATELET COUNT, AUTOMATED 38 10^3/uL (150-450)
== END ==
LOC: M WUC 16:29
PROVIDERS: ATTEND Internal Medicine Hematology & Oncology
DX: D50.9 Iron deficiency anemia, unspecified (principal)

== ENCOUNTER → 2020-12-23 | Outpatient (REF) | payer BC ==
[~2020-12-23] MED LIST changes: +ERGO500029 PO; +PRED10TA2 PO; -VITA50005 PO
== END ==
LOC: M SFHCWAGY 17:39
PROVIDERS: ATTEND Obstetrics & Gynecology
DX: R87.810 Cervical high risk human papillomavirus (HPV) DNA test positive (principal)
CPT/HCPCS: 87624; G0123

== ENCOUNTER → 2020-12-23 | Outpatient (CLI) | payer BC ==
--- NOTE | 2020-12-23 16:00 | REPMRS ---
Patient History The patient states she had a clinical breast exam in December 2020. Family history of breast cancer under age 50 in maternal aunt, prostate cancer and colorectal cancer in maternal grandfather. Took hormonal contraceptives for 4 years. 15 lb unintentional weight gain. Patient states no breast complaints today. Patient has signed MRS History Sheet. Digital Woman Screen Mammo: December 23, 2020 - Exam #: [id number] Bilateral CC and MLO view(s) were taken. Technologist: RT Kya Prior study comparison: December 18, 2019, bilateral digital woman screen mammo performed at [facility]. November 19, 2018, bilateral digital woman screen mammo performed at [facility]. FINDINGS: There are scattered fibroglandular densities. Screening. Digital screening (2D) mammography was performed bilaterally in the CC and MLO projections. Additionally, breast tomosynthesis (3D mammography) was performed bilaterally in the CC and MLO projections. Todays exam was compared to the prior exam/exams. By history, the patient has no complaints of a palpable breast abnormality or other significant breast complaints. The breasts are unchanged in size and shape. There are no ji-soft tissue densities or spiculated masses. There is no internal architectural distortion. There are no suspicious ji-calcific clusters. Skin thickening or nipple retraction is not present. IMPRESSION: BI-RADS Category 2- Benign Findings. There is no evidence of malignant alteration of the breasts. Followup examination recommended in one year. The Volpara volumetric breast density category is B, there are scattered areas of fibroglandular densities. This mammogram was read with [facility] assistance [facility],an FDA approved computer aided detection system for mammography. The lifetime Tyrer-Cuzick score is 14.1 % Negative x-ray reports should not delay surgical consultation if a dominant or clinically suspicious mass is present. Not all breast cancers can be identified by mammography. Therefore, we recommend that you continue to perform regular breast self-examination and physical examination and then promptly contact your physician of any concerns or changes. Adenosis and dense breasts may obscure an underlying neoplasm. Assessment: BI-RADS/ACR category 2 mammogram. Benign Findings. Recommendation Routine screening mammogram of both breasts in 1 year. Electronically Signed By: John Lopez DO 12/23/20 1553
== END ==
LOC: M WHC 13:47
PROVIDERS: ATTEND Obstetrics & Gynecology
DX: Z12.31 Encounter for screening mammogram for malignant neoplasm of breast (principal); Z80.3 Family history of malignant neoplasm of breast; Z80.42 Family history of malignant neoplasm of prostate

== ENCOUNTER → 2021-01-11 | Outpatient (CLI) | payer BC ==
[2021-01-11 17:57] LABS: ALBUMIN 3.8 GM/DL (3.2-5.2); ALT/SGPT 16 U/L (12-78); BILIRUBIN,TOTAL 0.4 MG/DL (0.2-1.0); BLOOD UREA NITROGEN 9 MG/DL (7-18); CALCIUM LEVEL 8.8 MG/DL (8.5-10.1); CARBON DIOXIDE LEVEL 30 MEQ/L (21-32); CHLORIDE LEVEL 102 MEQ/L (98-107); CREATININE FOR GFR 0.79 MG/DL (0.55-1.30); FOLATE 10.9 NG/ML; FREE T4 0.97 NG/DL (0.76-1.46); GLOMERULAR FILTRATION RATE > 60.0 (>58); GLUCOSE, FASTING 122 MG/DL (70-100); POTASSIUM SERUM 3.9 MEQ/L (3.5-5.1); SODIUM LEVEL 135 MEQ/L (136-145); THYROID STIMULATING HORMONE 0.671 uIU/ML (0.358-3.740); TOTAL PROTEIN 7.4 GM/DL (6.4-8.2); VITAMIN B12 LEVEL 1501 PG/ML
== END ==
LOC: M LAB 16:35
PROVIDERS: ATTEND Nurse Practitioner Family
DX: K59.09 Other constipation (principal); E53.8 Deficiency of other specified B group vitamins; E55.9 Vitamin D deficiency, unspecified

== ENCOUNTER → 2021-03-14 | Outpatient (REF) | payer BC | LOC: M SFHCWAGY 19:16 | PROVIDERS: ATTEND Obstetrics & Gynecology | DX: D07.2 Carcinoma in situ of vagina (principal) ==

== ENCOUNTER → 2021-05-19 | Outpatient (CLI) | payer BC ==
[2021-05-19 16:12] LABS: BASO % 0.3 % (0.0-1.0); HEMATOCRIT 46.1 % (36.0-47.0); HEMOGLOBIN 15.3 g/dl (12.0-15.5); LYMPH # 2.5 10^3/uL (1.5-5.0); LYMPH % 27.1 % (24.0-44.0); MEAN CORPUSCULAR HEMOGLOBIN 28.5 pg (27.0-33.0); MEAN CORPUSCULAR HGB CONC 33.2 g/dl (32.0-36.5); MONO # 0.8 10^3/uL (0.0-0.8); MONO % 8.6 % (2.0-8.0); NEUTROPHILS # 5.8 10^3/uL (1.5-8.5); NEUTROPHILS % 62.5 % (36.0-66.0); RED BLOOD COUNT 5.36 10^6/uL (4.00-5.40); WHITE BLOOD COUNT 9.2 10^3/uL (4.0-10.0)
[2021-05-19 16:15] LABS: PLATELET COUNT, AUTOMATED 38 10^3/uL (150-450)
== END ==
LOC: M WUC 14:32
PROVIDERS: ATTEND Specialist
DX: D50.9 Iron deficiency anemia, unspecified (principal)

== ENCOUNTER → 2021-11-16 | Outpatient (CLI) | payer BC ==
[2021-11-16 13:57] LABS: BASO % 0.3 % (0.0-1.0); EOS % 0.1 % (0.0-3.0); HEMATOCRIT 48.5 % (36.0-47.0); HEMOGLOBIN 16.1 g/dl (12.0-15.5); LYMPH # 2.5 10^3/uL (1.5-5.0); LYMPH % 24.6 % (24.0-44.0); MEAN CORPUSCULAR HEMOGLOBIN 29.1 pg (27.0-33.0); MEAN CORPUSCULAR HGB CONC 33.2 g/dl (32.0-36.5); MEAN CORPUSCULAR VOLUME 87.7 fl (80.0-96.0); MONO # 0.8 10^3/uL (0.0-0.8); MONO % 8.1 % (2.0-8.0); NEUTROPHILS # 6.7 10^3/uL (1.5-8.5); NEUTROPHILS % 66.3 % (36.0-66.0); RED BLOOD COUNT 5.53 10^6/uL (4.00-5.40)
[2021-11-16 13:59] LABS: PLATELET COUNT, AUTOMATED 50 10^3/uL (150-450)
== END ==
LOC: M PLALAB 10:49
PROVIDERS: ATTEND Internal Medicine Hematology & Oncology
DX: D69.3 Immune thrombocytopenic purpura (principal)

== ENCOUNTER → 2021-11-16 | Outpatient (CLI) | payer BC ==
[2021-11-16 14:30] LABS: ALBUMIN 3.6 GM/DL (3.2-5.2); ALT/SGPT 29 U/L (12-78); BILIRUBIN,TOTAL 0.3 MG/DL (0.2-1.0); BLOOD UREA NITROGEN 7 MG/DL (7-18); CALCIUM LEVEL 9.7 MG/DL (8.5-10.1); CARBON DIOXIDE LEVEL 29 MEQ/L (21-32); CHLORIDE LEVEL 107 MEQ/L (98-107); CHOLESTEROL LEVEL 220 MG/DL (<200); CHOLESTEROL RISK RATIO 6.111 (<5); CREATININE FOR GFR 0.74 MG/DL (0.55-1.30); FREE T4 0.89 NG/DL (0.76-1.46); GLOMERULAR FILTRATION RATE > 60.0 (>58); GLUCOSE, FASTING 104 MG/DL (70-100); HDL CHOLESTEROL 36 MG/DL (>40); LDL CHOLESTEROL 115 MG/DL (<100); NON-HDL-C 184 MG/DL; POTASSIUM SERUM 4.4 MEQ/L (3.5-5.1); PTH INTACT 34.6 PG/ML (18.5-88.0); SODIUM LEVEL 140 MEQ/L (136-145); TOTAL 25(OH) VITAMIN D 34.7 NG/ML (30.0-100.0); TOTAL PROTEIN 7.2 GM/DL (6.4-8.2); TRIGLYCERIDES LEVEL 346 MG/DL (<150); VITAMIN B12 LEVEL 624 PG/ML (247-911)
== END ==
LOC: M PLALAB 10:47
PROVIDERS: ATTEND Physician Assistant Medical
DX: E55.9 Vitamin D deficiency, unspecified (principal); E78.1 Pure hyperglyceridemia; F32.9 Major depressive disorder, single episode, unspecified; E53.8 Deficiency of other specified B group vitamins

== ENCOUNTER → 2022-01-03 | Outpatient (REF) | payer BC | LOC: M SFHCWAGY 17:16 | PROVIDERS: ATTEND Obstetrics & Gynecology | DX: Z12.72 Encounter for screening for malignant neoplasm of vagina (principal); R87.620 Atypical squamous cells of undetermined significance on cytologic smear of vagina (ASC-US) ==

== ENCOUNTER → 2022-01-03 | Outpatient (CLI) | payer BC | LOC: M WHC 14:03 | PROVIDERS: ATTEND Obstetrics & Gynecology | DX: Z12.31 Encounter for screening mammogram for malignant neoplasm of breast (principal) ==

== ENCOUNTER → 2022-02-16 | Outpatient (CLI) | payer BC ==
[~2022-02-16] MED LIST changes: +NEOM1SOL13
[2022-02-16 19:02] LABS: BASO # 0.1 10^3/uL (0.0-0.2); BASO % 0.6 % (0.0-1.0); HEMATOCRIT 46.3 % (36.0-47.0); HEMOGLOBIN 15.5 g/dl (12.0-15.5); LYMPH # 2.8 10^3/uL (1.5-5.0); LYMPH % 22.7 % (24.0-44.0); MEAN CORPUSCULAR HEMOGLOBIN 29.2 pg (27.0-33.0); MEAN CORPUSCULAR HGB CONC 33.5 g/dl (32.0-36.5); MEAN CORPUSCULAR VOLUME 87.4 fl (80.0-96.0); MONO # 0.8 10^3/uL (0.0-0.8); MONO % 6.5 % (2.0-8.0); NEUTROPHILS # 8.3 10^3/uL (1.5-8.5); NEUTROPHILS % 67.8 % (36.0-66.0); WHITE BLOOD COUNT 12.2 10^3/uL (4.0-10.0)
[2022-02-16 19:07] LABS: PLATELET COUNT, AUTOMATED 52 10^3/uL (150-450)
[2022-02-16 19:30] LABS: ALBUMIN 3.6 GM/DL (3.2-5.2); ALT/SGPT 20 U/L (12-78); BILIRUBIN,TOTAL 0.2 MG/DL (0.2-1.0); BLOOD UREA NITROGEN 6 MG/DL (7-18); CALCIUM LEVEL 9.1 MG/DL (8.5-10.1); CARBON DIOXIDE LEVEL 27 MEQ/L (21-32); CHLORIDE LEVEL 104 MEQ/L (98-107); CREATININE FOR GFR 0.68 MG/DL (0.55-1.30); GLOMERULAR FILTRATION RATE > 60.0 (>58); GLUCOSE, FASTING 118 MG/DL (70-100); POTASSIUM SERUM 3.5 MEQ/L (3.5-5.1); SODIUM LEVEL 137 MEQ/L (136-145); TOTAL PROTEIN 7.2 GM/DL (6.4-8.2)
== END ==
LOC: M WUC 15:34
PROVIDERS: ATTEND Internal Medicine Hematology & Oncology
DX: D69.3 Immune thrombocytopenic purpura (principal)

== ENCOUNTER → 2022-07-31 | Outpatient (REF) | payer BC | LOC: M SFHCWAGY 16:58 | PROVIDERS: ATTEND Obstetrics & Gynecology | DX: Z12.72 Encounter for screening for malignant neoplasm of vagina (principal); R87.610 Atypical squamous cells of undetermined significance on cytologic smear of cervix (ASC-US) | CPT/HCPCS: 87624; G0123 ==

== ENCOUNTER → 2022-09-10 | Outpatient (CLI) | payer BC ==
[2022-09-10 16:55] LABS: BASO # 0.1 10^3/uL (0.0-0.2); BASO % 0.7 % (0.0-1.0); HEMOGLOBIN 15.7 g/dl (12.0-15.5); LYMPH # 2.2 10^3/uL (1.5-5.0); LYMPH % 18.7 % (24.0-44.0); MEAN CORPUSCULAR HEMOGLOBIN 28.5 pg (27.0-33.0); MEAN CORPUSCULAR VOLUME 88.9 fl (80.0-96.0); MONO # 0.8 10^3/uL (0.0-0.8); MONO % 6.6 % (2.0-8.0); NEUTROPHILS # 8.5 10^3/uL (1.5-8.5); NEUTROPHILS % 71.8 % (36.0-66.0); RED BLOOD COUNT 5.51 10^6/uL (4.00-5.40); WHITE BLOOD COUNT 11.9 10^3/uL (4.0-10.0)
[2022-09-10 17:18] LABS: PLATELET COUNT, AUTOMATED 66 10^3/uL (150-450)
== END ==
LOC: M WUC 11:27
PROVIDERS: ATTEND Internal Medicine Hematology & Oncology
DX: D69.3 Immune thrombocytopenic purpura (principal)

== ENCOUNTER → 2022-11-08 | Outpatient (CLI) | payer BC ==
[2022-11-08 18:02] LABS: BASO # 0.1 10^3/uL (0.0-0.2); BASO % 0.4 % (0.0-1.0); HEMATOCRIT 48.7 % (36.0-47.0); HEMOGLOBIN 16.2 g/dl (12.0-15.5); LYMPH # 2.8 10^3/uL (1.5-5.0); MEAN CORPUSCULAR HEMOGLOBIN 29.4 pg (27.0-33.0); MEAN CORPUSCULAR HGB CONC 33.3 g/dl (32.0-36.5); MEAN CORPUSCULAR VOLUME 88.4 fl (80.0-96.0); MONO # 0.8 10^3/uL (0.0-0.8); MONO % 6.6 % (2.0-8.0); NEUTROPHILS # 8.9 10^3/uL (1.5-8.5); NEUTROPHILS % 70.2 % (36.0-66.0); RED BLOOD COUNT 5.51 10^6/uL (4.00-5.40); WHITE BLOOD COUNT 12.7 10^3/uL (4.0-10.0)
[2022-11-08 18:14] LABS: PLATELET COUNT, AUTOMATED 68 10^3/uL (150-450)
== END ==
LOC: M WUC 14:47
PROVIDERS: ATTEND Internal Medicine Hematology & Oncology
DX: D69.3 Immune thrombocytopenic purpura (principal)

== ENCOUNTER → 2022-12-14 | Outpatient (REF) | payer BC | LOC: M SFHCPLAZ 13:26 | PROVIDERS: ATTEND Physician Assistant Medical | DX: E78.1 Pure hyperglyceridemia (principal); E55.9 Vitamin D deficiency, unspecified; D69.6 Thrombocytopenia, unspecified; F32.9 Major depressive disorder, single episode, unspecified; F51.02 Adjustment insomnia; E53.8 Deficiency of other specified B group vitamins; Z53.9 Procedure and treatment not carried out, unspecified reason ==

== ENCOUNTER → 2023-01-11 | Outpatient (CLI) | payer BC | LOC: M WHC 15:48 | PROVIDERS: ATTEND Physician Assistant Medical | DX: Z12.39 Encounter for other screening for malignant neoplasm of breast (principal) ==

== ENCOUNTER → 2023-02-08 | Outpatient (CLI) | payer BC ==
[2023-02-08 13:31] LABS: BASO # 0.1 10^3/uL (0.0-0.2); BASO % 0.4 % (0.0-1.0); EOS % 0.1 % (0.0-3.0); HEMATOCRIT 47.3 % (36.0-47.0); HEMOGLOBIN 15.7 g/dl (12.0-15.5); LYMPH # 2.9 10^3/uL (1.5-5.0); MEAN CORPUSCULAR HEMOGLOBIN 29.5 pg (27.0-33.0); MEAN CORPUSCULAR HGB CONC 33.2 g/dl (32.0-36.5); MEAN CORPUSCULAR VOLUME 88.7 fl (80.0-96.0); MONO # 0.7 10^3/uL (0.0-0.8); MONO % 5.4 % (2.0-8.0); NEUTROPHILS # 9.5 10^3/uL (1.5-8.5); NEUTROPHILS % 71.3 % (36.0-66.0); RED BLOOD COUNT 5.33 10^6/uL (4.00-5.40); WHITE BLOOD COUNT 13.3 10^3/uL (4.0-10.0)
[2023-02-08 13:35] LABS: PLATELET COUNT, AUTOMATED 68 10^3/uL (150-450)
[2023-02-08 13:47] LABS: INR 0.88; PARTIAL THROMBOPLASTIN TIME 27.7 SECONDS (24.8-34.2); PROTHROMBIN TIME 12.1 SECONDS (12.5-14.5)
[2023-02-08 13:51] LABS: ALBUMIN 3.6 G/DL (3.2-5.2); ALKALINE PHOSPHATASE 101 U/L (46-116); ALT/SGPT 16 U/L (7.0-40); AST/SGOT < 8 U/L (<34); BILIRUBIN,TOTAL 0.2 MG/DL (0.3-1.2); BLOOD UREA NITROGEN 6 MG/DL (9-23); CALCIUM LEVEL 8.6 MG/DL (8.5-10.1); CARBON DIOXIDE LEVEL 26 MMOL/L (20-31); CHLORIDE LEVEL 105 MMOL/L (98-107); CREATININE FOR GFR 0.62 MG/DL (0.55-1.30); GLOMERULAR FILTRATION RATE > 60.0 (>58); GLUCOSE, FASTING 106 MG/DL (60-100); POTASSIUM SERUM 4.1 MMOL/L (3.5-5.1); SODIUM LEVEL 140 MMOL/L (136-145); TOTAL PROTEIN 6.6 G/DL (5.7-8.2)
== END ==
LOC: M PLALAB 10:33
PROVIDERS: ATTEND Specialist
DX: R23.3 Spontaneous ecchymoses (principal)

== ENCOUNTER → 2023-02-08 | Outpatient (CLI) | payer BC ==
[2023-02-08 13:32] LABS: BASO % 0.3 % (0.0-1.0); EOS % 0.1 % (0.0-3.0); HEMOGLOBIN 15.8 g/dl (12.0-15.5); LYMPH # 2.7 10^3/uL (1.5-5.0); MEAN CORPUSCULAR HEMOGLOBIN 29.4 pg (27.0-33.0); MEAN CORPUSCULAR HGB CONC 32.9 g/dl (32.0-36.5); MEAN CORPUSCULAR VOLUME 89.4 fl (80.0-96.0); MONO # 0.7 10^3/uL (0.0-0.8); MONO % 5.8 % (2.0-8.0); NEUTROPHILS # 8.7 10^3/uL (1.5-8.5); RED BLOOD COUNT 5.37 10^6/uL (4.00-5.40); WHITE BLOOD COUNT 12.3 10^3/uL (4.0-10.0)
[2023-02-08 13:38] LABS: PLATELET COUNT, AUTOMATED 72 10^3/uL (150-450)
[2023-02-08 13:51] LABS: FREE T4 0.99 NG/DL (0.89-1.76); THYROID STIMULATING HORMONE 2.284 uIU/ML (0.55-4.78)
[2023-02-08 13:52] LABS: TOTAL 25(OH) VITAMIN D 40.1 NG/ML (20.0-100.0)
[2023-02-08 13:54] LABS: VITAMIN B12 LEVEL 831 PG/ML (211-911)
[2023-02-08 13:55] LABS: ALBUMIN 3.6 G/DL (3.2-5.2); ALKALINE PHOSPHATASE 103 U/L (46-116); ALT/SGPT 16 U/L (7.0-40); AST/SGOT < 8 U/L (<34); BILIRUBIN,TOTAL 0.2 MG/DL (0.3-1.2); BLOOD UREA NITROGEN 6 MG/DL (9-23); CALCIUM LEVEL 8.9 MG/DL (8.5-10.1); CARBON DIOXIDE LEVEL 27 MMOL/L (20-31); CHLORIDE LEVEL 106 MMOL/L (98-107); CHOLESTEROL LEVEL 152 MG/DL (<200); CHOLESTEROL RISK RATIO 3.07 (<5); CREATININE FOR GFR 0.65 MG/DL (0.55-1.30); GLOMERULAR FILTRATION RATE > 60.0 (>58); GLUCOSE, FASTING 107 MG/DL (60-100); HDL CHOLESTEROL 49.4 MG/DL (>40); LDL CHOLESTEROL 73.2 MG/DL (<100); NON-HDL-C 102.6 MG/DL; POTASSIUM SERUM 4.1 MMOL/L (3.5-5.1); SODIUM LEVEL 141 MMOL/L (136-145); TOTAL PROTEIN 6.6 G/DL (5.7-8.2); TRIGLYCERIDES LEVEL 147 MG/DL (<150)
[2023-02-09 01:12] LABS: PTH INTACT 41.4 PG/ML (18.5-88.0)
== END ==
LOC: M PLALAB 10:29
PROVIDERS: ATTEND Physician Assistant Medical
DX: M54.50 Low back pain, unspecified (principal); E55.9 Vitamin D deficiency, unspecified; D69.6 Thrombocytopenia, unspecified; F32.9 Major depressive disorder, single episode, unspecified; F51.02 Adjustment insomnia; E53.8 Deficiency of other specified B group vitamins; E78.5 Hyperlipidemia, unspecified

== ENCOUNTER → 2023-05-20 | Outpatient (CLI) | payer BC ==
[2023-05-20 21:33] LABS: BASO % 0.3 % (0.0-1.0); EOS % 0.1 % (0.0-3.0); HEMATOCRIT 47.5 % (36.0-47.0); HEMOGLOBIN 15.8 g/dl (12.0-15.5); LYMPH # 2.8 10^3/uL (1.5-5.0); MEAN CORPUSCULAR HEMOGLOBIN 29.7 pg (27.0-33.0); MEAN CORPUSCULAR HGB CONC 33.3 g/dl (32.0-36.5); MEAN CORPUSCULAR VOLUME 89.3 fl (80.0-96.0); MONO # 0.7 10^3/uL (0.0-0.8); MONO % 6.4 % (2.0-8.0); NEUTROPHILS # 7.8 10^3/uL (1.5-8.5); NEUTROPHILS % 68.3 % (36.0-66.0); RED BLOOD COUNT 5.32 10^6/uL (4.00-5.40); WHITE BLOOD COUNT 11.4 10^3/uL (4.0-10.0)
[2023-05-20 21:43] LABS: PLATELET COUNT, AUTOMATED 61 10^3/uL (150-450)
[2023-05-20 21:47] LABS: INR 0.96; PROTHROMBIN TIME 12.5 SECONDS (12.5-14.5)
[2023-05-20 21:48] LABS: PARTIAL THROMBOPLASTIN TIME 28.3 SECONDS (24.8-34.2)
[2023-05-20 21:54] LABS: ALBUMIN 4.1 G/DL (3.2-5.2); ALKALINE PHOSPHATASE 91 U/L (46-116); ALT/SGPT 18 U/L (7.0-40); AST/SGOT 11 U/L (<34); BILIRUBIN,TOTAL 0.3 MG/DL (0.3-1.2); BLOOD UREA NITROGEN 8 MG/DL (9-23); CALCIUM LEVEL 9.3 MG/DL (8.5-10.1); CARBON DIOXIDE LEVEL 29 MMOL/L (20-31); CHLORIDE LEVEL 102 MMOL/L (98-107); CREATININE FOR GFR 0.67 MG/DL (0.55-1.30); GLOMERULAR FILTRATION RATE > 60.0 (>58); GLUCOSE, FASTING 118 MG/DL (60-100); POTASSIUM SERUM 3.6 MMOL/L (3.5-5.1); SODIUM LEVEL 138 MMOL/L (136-145); TOTAL PROTEIN 7.1 G/DL (5.7-8.2)
[2023-05-29 14:09] LABS: F8 ACTIVITY FOR F8 PANEL 106 % (56-140); F8 ACTIVITY vWB FOR F8 PANEL 133 % (50-200); F8 ANTIGEN FOR F8 PANEL 158 % (50-200)
== END ==
LOC: M WUC 15:16
PROVIDERS: ATTEND Specialist
DX: R23.3 Spontaneous ecchymoses (principal)

== ENCOUNTER → 2023-07-26 | Outpatient (CLI) | payer BC | LOC: M PLAIMG 07:58 | PROVIDERS: ATTEND Psychiatry & Neurology Neurology | DX: G93.0 Cerebral cysts (principal); G43.719 Chronic migraine without aura, intractable, without status migrainosus; J32.0 Chronic maxillary sinusitis ==

== ENCOUNTER → 2023-11-01 | Outpatient (CLI) | payer BC ==
[2023-11-02 20:09] LABS: IgG P18 AB Absent (.); IgG P23 AB Absent (.); IgG P28 AB Absent (.); IgG P30 AB Absent (.); IgG P39 AB Absent (.); IgG P41 AB Absent (.); IgG P45 AB Absent (.); IgG P66 AB Absent (.); IgG P93 AB Absent (.); IgM P23 AB Absent (.); IgM P39 AB Absent (.); IgM P41 AB Absent (.); LYME IgG WB INTERPRETATION Negative (.); LYME IgM WB INTERPRETATION Negative (.)
== END ==
LOC: M WUC 12:21
PROVIDERS: ATTEND Physician Assistant Medical
DX: Z11.9 Encounter for screening for infectious and parasitic diseases, unspecified (principal); W57.XXXA Bitten or stung by nonvenomous insect and other nonvenomous arthropods, initial encounter; Y99.9 Unspecified external cause status

== ENCOUNTER → 2023-11-29 | Outpatient (REF) | payer BC ==
[2023-11-29 17:42] LABS: BASO # 0.1 10^3/uL (0.0-0.2); BASO % 0.3 % (0.0-1.0); EOS % 0.1 % (0.0-3.0); HEMOGLOBIN 16.8 g/dl (12.0-15.5); LYMPH # 2.9 10^3/uL (1.5-5.0); LYMPH % 17.2 % (24.0-44.0); MEAN CORPUSCULAR HEMOGLOBIN 29.5 pg (27.0-33.0); MEAN CORPUSCULAR HGB CONC 32.9 g/dl (32.0-36.5); MEAN CORPUSCULAR VOLUME 89.5 fl (80.0-96.0); MONO % 6.1 % (2.0-8.0); NEUTROPHILS # 12.9 10^3/uL (1.5-8.5); NEUTROPHILS % 75.7 % (36.0-66.0)
[2023-11-29 17:52] LABS: PLATELET COUNT, AUTOMATED 68 10^3/uL (150-450)
== END ==
LOC: M LABDRWAD 16:42
PROVIDERS: ATTEND Internal Medicine Hematology & Oncology
DX: D69.3 Immune thrombocytopenic purpura (principal)

== ENCOUNTER → 2023-12-10 | Outpatient (REF) | payer BC ==
[2023-12-10 16:15] LABS: HEMOGLOBIN A1c 5.2 % (4.0-6.0)
[2023-12-10 16:21] LABS: ALBUMIN 3.7 G/DL (3.2-5.2); ALKALINE PHOSPHATASE 88 U/L (46-116); ALT/SGPT 14 U/L (7.0-40); AST/SGOT < 8 U/L (<34); BILIRUBIN,TOTAL 0.3 MG/DL (0.3-1.2); BLOOD UREA NITROGEN 6 MG/DL (9-23); CALCIUM LEVEL 9.3 MG/DL (8.5-10.1); CARBON DIOXIDE LEVEL 30 MMOL/L (20-31); CHLORIDE LEVEL 104 MMOL/L (98-107); GLOMERULAR FILTRATION RATE > 60.0 (>58); GLUCOSE, FASTING 107 MG/DL (60-100); POTASSIUM SERUM 3.8 MMOL/L (3.5-5.1); PTH INTACT 50.7 PG/ML (18.5-88.0); SODIUM LEVEL 139 MMOL/L (136-145); TOTAL PROTEIN 6.9 G/DL (5.7-8.2)
[2023-12-10 16:22] LABS: FREE T4 0.94 NG/DL (0.89-1.76); THYROID STIMULATING HORMONE 1.333 uIU/ML (0.55-4.78); TOTAL 25(OH) VITAMIN D 34.2 NG/ML (20.0-100.0)
[2023-12-10 16:46] LABS: VITAMIN B12 LEVEL 828 PG/ML (211-911)
== END ==
LOC: M LAB REF 15:21
PROVIDERS: ATTEND Physician Assistant Medical
DX: E55.9 Vitamin D deficiency, unspecified (principal); E78.1 Pure hyperglyceridemia; F32.9 Major depressive disorder, single episode, unspecified; D69.6 Thrombocytopenia, unspecified; E53.8 Deficiency of other specified B group vitamins

== ENCOUNTER → 2024-01-16 | Outpatient (REF) | payer BC ==
[2024-01-16 15:44] LABS: APPEARANCE, URINE CLEAR (CLEAR); BACTERIA, URINE AUTO 1+ (NEGATIVE); BILIRUBIN, URINE AUTO NEGATIVE (NEGATIVE); BLOOD, URINE BLOOD NEGATIVE (NEGATIVE); COLOR, URINE YELLOW (YELLOW); GLUCOSE, URINE (UA) AUTO NEGATIVE (NEGATIVE); KETONE, URINE AUTO NEGATIVE (NEGATIVE); LEUKOCYTE ESTERASE, URINE AUTO TRACE (NEGATIVE); NITRITE, URINE AUTO NEGATIVE (NEGATIVE); PROTEIN, URINE AUTO NEGATIVE (NEGATIVE); RBC, URINE AUTO 0 /HPF (0-3); SPECIFIC GRAVITY URINE AUTO 1.003 (1.002-1.035); SQUAMOUS EPITHELIAL CELL UR AU 0 /HPF (0-6); UROBILINOGEN, URINE AUTO 0.2 mg/dL (0.0-2.0); WBC, URINE AUTO 2 /HPF (0-3)
== END ==
LOC: M SFHCPLAZ 14:56
PROVIDERS: ATTEND Physician Assistant Medical
DX: R30.0 Dysuria (principal); R35.0 Frequency of micturition

== ENCOUNTER → 2024-01-30 | Outpatient (CLI) | payer BC | LOC: M RAD 07:44 | PROVIDERS: ATTEND Specialist | DX: D72.829 Elevated white blood cell count, unspecified (principal) ==

== ENCOUNTER → 2024-06-02 | Outpatient (CLI) | payer BC ==
[~2024-06-02] MED LIST changes: +FEXO-112 PO; -FOLI1TAB11; +FOLI1TAB11 PO; -GALC120S; +GALC120S SQ; -NEOM1SOL13; +NEOM1SOL21; +RIME75TA PO
== END ==
LOC: M PLAIMG 12:38
PROVIDERS: ATTEND Physician Assistant Medical
DX: M54.12 Radiculopathy, cervical region (principal); M50.322 Other cervical disc degeneration at C5-C6 level

== ENCOUNTER → 2024-06-10 | Outpatient (CLI) | payer BC | LOC: M WHC 10:28 | PROVIDERS: ATTEND Obstetrics & Gynecology | DX: Z12.31 Encounter for screening mammogram for malignant neoplasm of breast (principal) ==

== ENCOUNTER → 2024-06-23 | Outpatient (CLI) | payer BC ==
[~2024-06-23] MED LIST changes: +PANT20TA6; +PARO20TA3
[2024-06-23 19:27] LABS: ALBUMIN 3.8 G/DL (3.2-5.2); ALKALINE PHOSPHATASE 70 U/L (35-104); ALT/SGPT 16 U/L (7.0-40); AST/SGOT < 8 U/L (<34); BILIRUBIN,TOTAL 0.4 MG/DL (0.3-1.2); BLOOD UREA NITROGEN 7 MG/DL (9-23); CALCIUM LEVEL 9.4 MG/DL (8.5-10.1); CARBON DIOXIDE LEVEL 26 MMOL/L (20-31); CHLORIDE LEVEL 108 MMOL/L (98-107); CREATININE FOR GFR 0.75 MG/DL (0.55-1.30); GLOMERULAR FILTRATION RATE > 60.0 (>58); GLUCOSE, FASTING 89 MG/DL (60-100); POTASSIUM SERUM 4.1 MMOL/L (3.5-5.1); SODIUM LEVEL 141 MMOL/L (136-145); TOTAL PROTEIN 6.9 G/DL (5.7-8.2)
[2024-06-23 19:28] LABS: PTH INTACT 37.4 PG/ML (18.5-88.0)
[2024-06-23 19:29] LABS: FREE T4 1.16 NG/DL (0.89-1.76); THYROID STIMULATING HORMONE 1.154 uIU/ML (0.55-4.78); TOTAL 25(OH) VITAMIN D 30.6 NG/ML (20.0-100.0)
[2024-06-23 19:53] LABS: HEMOGLOBIN A1c 4.6 % (4.0-6.0)
== END ==
LOC: M WUC 14:50
PROVIDERS: ATTEND Physician Assistant Medical
DX: E55.9 Vitamin D deficiency, unspecified (principal); E78.1 Pure hyperglyceridemia; D69.6 Thrombocytopenia, unspecified; F32.A Depression, unspecified

== ENCOUNTER → 2024-06-23 | Outpatient (CLI) | payer BC ==
[2024-06-23 19:22] LABS: BASO % 0.5 % (0.0-1.0); HEMATOCRIT 46.4 % (36.0-47.0); HEMOGLOBIN 15.6 g/dl (12.0-15.5); LYMPH # 2.1 10^3/uL (1.5-5.0); LYMPH % 25.2 % (24.0-44.0); MEAN CORPUSCULAR HEMOGLOBIN 29.8 pg (27.0-33.0); MEAN CORPUSCULAR HGB CONC 33.6 g/dl (32.0-36.5); MEAN CORPUSCULAR VOLUME 88.5 fl (80.0-96.0); MONO # 0.5 10^3/uL (0.0-0.8); NEUTROPHILS # 5.6 10^3/uL (1.5-8.5); NEUTROPHILS % 67.8 % (36.0-66.0); RED BLOOD COUNT 5.24 10^6/uL (4.00-5.40); WHITE BLOOD COUNT 8.3 10^3/uL (4.0-10.0)
[2024-06-23 19:27] LABS: ALBUMIN 3.7 G/DL (3.2-5.2); ALKALINE PHOSPHATASE 69 U/L (35-104); ALT/SGPT 17 U/L (7.0-40); AST/SGOT < 8 U/L (<34); BILIRUBIN,TOTAL 0.4 MG/DL (0.3-1.2); BLOOD UREA NITROGEN 8 MG/DL (9-23); CALCIUM LEVEL 9.3 MG/DL (8.5-10.1); CARBON DIOXIDE LEVEL 26 MMOL/L (20-31); CHLORIDE LEVEL 107 MMOL/L (98-107); CREATININE FOR GFR 0.78 MG/DL (0.55-1.30); GLOMERULAR FILTRATION RATE > 60.0 (>58); GLUCOSE, FASTING 87 MG/DL (60-100); POTASSIUM SERUM 3.7 MMOL/L (3.5-5.1); SODIUM LEVEL 139 MMOL/L (136-145); TOTAL PROTEIN 7.1 G/DL (5.7-8.2)
[2024-06-23 19:44] LABS: PLATELET COUNT, AUTOMATED 72 10^3/uL (150-450)
== END ==
LOC: M WUC 14:54
PROVIDERS: ATTEND Psychiatry & Neurology Neurology
DX: R51.9 Headache, unspecified (principal)

== ENCOUNTER → 2024-06-23 | Outpatient (CLI) | payer BC ==
[2024-06-23 19:26] LABS: ALBUMIN 3.7 G/DL (3.2-5.2); ALKALINE PHOSPHATASE 69 U/L (35-104); ALT/SGPT 16 U/L (7.0-40); AST/SGOT < 8 U/L (<34); BILIRUBIN,TOTAL 0.4 MG/DL (0.3-1.2); BLOOD UREA NITROGEN 7 MG/DL (9-23); CALCIUM LEVEL 9.3 MG/DL (8.5-10.1); CARBON DIOXIDE LEVEL 27 MMOL/L (20-31); CHLORIDE LEVEL 108 MMOL/L (98-107); CREATININE FOR GFR 0.76 MG/DL (0.55-1.30); GLOMERULAR FILTRATION RATE > 60.0 (>58); GLUCOSE, FASTING 89 MG/DL (60-100); POTASSIUM SERUM 3.9 MMOL/L (3.5-5.1); SODIUM LEVEL 141 MMOL/L (136-145); TOTAL PROTEIN 6.8 G/DL (5.7-8.2)
== END ==
LOC: M WUC 14:57
PROVIDERS: ATTEND Internal Medicine Hematology & Oncology
DX: D69.3 Immune thrombocytopenic purpura (principal)

== ENCOUNTER → 2024-07-24 | Outpatient (REF) | payer BC ==
[~2024-07-24] MED LIST changes: +CYCL-707 PO; +MIRT-10 PO; -PANT20TA6; +PANT20TA6 PO; -PARO20TA3; +PARO20TA3 PO; +ZONI100C67 PO
[2024-07-29 15:11] LABS: HPV APTIMA Not Detected (Not Detected)
== END ==
LOC: M SFHCWAGY 14:49
PROVIDERS: ATTEND Obstetrics & Gynecology
DX: Z01.419 Encounter for gynecological examination (general) (routine) without abnormal findings (principal); Z12.72 Encounter for screening for malignant neoplasm of vagina
CPT/HCPCS: 87624; G0123

== ENCOUNTER → 2024-07-30 | Outpatient (REF) | payer BC ==
[2024-07-30 18:25] LABS: BASO # 0.1 10^3/uL (0.0-0.2); BASO % 0.4 % (0.0-1.0); EOS % 0.1 % (0.0-3.0); HEMATOCRIT 50.8 % (36.0-47.0); HEMOGLOBIN 16.8 g/dl (12.0-15.5); LYMPH % 24.9 % (24.0-44.0); MEAN CORPUSCULAR HEMOGLOBIN 29.3 pg (27.0-33.0); MEAN CORPUSCULAR HGB CONC 33.1 g/dl (32.0-36.5); MEAN CORPUSCULAR VOLUME 88.5 fl (80.0-96.0); MONO # 0.8 10^3/uL (0.0-0.8); MONO % 6.4 % (2.0-8.0); NEUTROPHILS % 67.3 % (36.0-66.0); PLATELET COUNT, AUTOMATED 107 10^3/uL (150-450); RED BLOOD COUNT 5.74 10^6/uL (4.00-5.40)
== END ==
LOC: M LABWUC 16:50
PROVIDERS: ATTEND Internal Medicine Hematology & Oncology
DX: D69.3 Immune thrombocytopenic purpura (principal)

== ENCOUNTER 2024-08-06 10:51 | Day surgery (SDC) | payer BC ==
[~2024-08-06] VITALS: Ht 167.6 cm; Wt 65.7 kg
[2024-08-06] MEDS ORDERED: propofoL 200 MG/20 ML VIAL As Ordered ONE (12:30)
[2024-08-06] MEDS ORDERED: LIDOCAINE 2% 100MG/5ML SDV (FOR ANES.) As Ordered ONE (12:30)
[2024-08-06 13:10] VITALS: TEMP 97.8
[2024-08-06 13:27] VITALS: BP 110/64; O2SAT 99
== END 2024-08-06 13:47 | disposition home or self-care (01) ==
LOC: M OPP 10:51
PROVIDERS: ATTEND Internal Medicine Gastroenterology
DX: Z12.11 Encounter for screening for malignant neoplasm of colon (principal); Z86.0100 Personal history of colon polyps, unspecified; K29.80 Duodenitis without bleeding; K44.9 Diaphragmatic hernia without obstruction or gangrene; K58.9 Irritable bowel syndrome, unspecified; F41.9 Anxiety disorder, unspecified; F32.A Depression, unspecified; G43.909 Migraine, unspecified, not intractable, without status migrainosus; R73.03 Prediabetes; F17.210 Nicotine dependence, cigarettes, uncomplicated; Z88.6 Allergy status to analgesic agent; Z88.8 Allergy status to other drugs, medicaments and biological substances; Z79.899 Other long term (current) drug therapy; Z80.8 Family history of malignant neoplasm of other organs or systems

== ENCOUNTER → 2024-08-10 | Outpatient (CLI) | payer BC ==
[~2024-08-10] MED LIST changes: +PROHANCE 279.3MG/ML 15ML VIAL ONE
== END ==
LOC: M PLAIMG 13:15
PROVIDERS: ATTEND Physician Assistant Medical
DX: M47.22 Other spondylosis with radiculopathy, cervical region (principal); M48.02 Spinal stenosis, cervical region
CPT/HCPCS: 72156; A9576

== ENCOUNTER → 2024-08-21 | Outpatient (REF) | payer BC ==
[~2024-08-21] MED LIST changes: +CORTOTSO; -NEOM1SOL21; -PROHANCE 279.3MG/ML 15ML VIAL ONE
== END ==
LOC: M SFHCWAGY 14:58
PROVIDERS: ATTEND Obstetrics & Gynecology
DX: N90.89 Other specified noninflammatory disorders of vulva and perineum (principal); B07.9 Viral wart, unspecified

== ENCOUNTER → 2024-11-02 | Outpatient (CLI) | payer BC ==
[~2024-11-02] MED LIST changes: +TOPI-257; -TOPI100T9
[2024-11-02 18:18] LABS: BASO % 0.4 % (0.0-1.0); HEMATOCRIT 46.3 % (36.0-47.0); HEMOGLOBIN 15.5 g/dl (12.0-15.5); LYMPH # 2.9 10^3/uL (1.5-5.0); LYMPH % 26.9 % (24.0-44.0); MEAN CORPUSCULAR HGB CONC 33.5 g/dl (32.0-36.5); MEAN CORPUSCULAR VOLUME 89.6 fl (80.0-96.0); MONO # 0.7 10^3/uL (0.0-0.8); MONO % 6.1 % (2.0-8.0); RED BLOOD COUNT 5.17 10^6/uL (4.00-5.40); WHITE BLOOD COUNT 10.6 10^3/uL (4.0-10.0)
[2024-11-02 18:31] LABS: PLATELET COUNT, AUTOMATED 92 10^3/uL (150-450)
[2024-11-02 18:50] LABS: ALBUMIN 3.8 G/DL (3.2-5.2); ALKALINE PHOSPHATASE 71 U/L (35-104); ALT/SGPT 17 U/L (7.0-40); AST/SGOT < 8 U/L (<34); BILIRUBIN,TOTAL 0.3 MG/DL (0.3-1.2); BLOOD UREA NITROGEN 7 MG/DL (9-23); CALCIUM LEVEL 8.8 MG/DL (8.5-10.1); CARBON DIOXIDE LEVEL 28 MMOL/L (20-31); CHLORIDE LEVEL 106 MMOL/L (98-107); CREATININE FOR GFR 0.76 MG/DL (0.55-1.30); GLOMERULAR FILTRATION RATE > 90.0 (>58); GLUCOSE, FASTING 68 MG/DL (60-100); POTASSIUM SERUM 3.7 MMOL/L (3.5-5.1); SODIUM LEVEL 140 MMOL/L (136-145); TOTAL PROTEIN 6.7 G/DL (5.7-8.2)
== END ==
LOC: M WUC 15:36
PROVIDERS: ATTEND Internal Medicine Hematology & Oncology
DX: D69.3 Immune thrombocytopenic purpura (principal); K90.0 Celiac disease

== ENCOUNTER → 2024-11-02 | Outpatient (CLI) | payer BC | LOC: M WUC 15:38 | PROVIDERS: ATTEND Internal Medicine Gastroenterology | DX: K90.0 Celiac disease (principal) ==

== ENCOUNTER → 2025-02-17 | Outpatient (CLI) | payer BC ==
[2025-02-17 17:51] LABS: BASO # 0.1 10^3/uL (0.0-0.2); BASO % 0.5 % (0.0-1.0); EOS # 0.0 10^3/uL (0.0-0.5); EOS % 0.0 % (0.0-3.0); LYMPH # 2.4 10^3/uL (1.5-5.0); LYMPH % 25.6 % (24.0-44.0); MONO # 0.7 10^3/uL (0.0-0.8); MONO % 7.1 % (2.0-8.0); NEUTROPHILS # 6.2 10^3/uL (1.5-8.5); NEUTROPHILS % 66.3 % (36.0-66.0); PLATELET COUNT, AUTOMATED 102 10^3/uL (150-450)
[2025-02-17 18:06] LABS: ALT/SGPT 10.0 U/L (7.0-40); AST/SGOT 11.0 U/L (<34); CALCIUM LEVEL 8.8 MG/DL (8.5-10.1); CARBON DIOXIDE LEVEL 26.0 MMOL/L (20-31); CHLORIDE LEVEL 108.0 MMOL/L (98-107); CREATININE FOR GFR 0.88 MG/DL (0.55-1.30); GLOMERULAR FILTRATION RATE 81.5 (>58); POTASSIUM SERUM 3.8 MMOL/L (3.5-5.1); SODIUM LEVEL 143.0 MMOL/L (136-145)
== END ==
LOC: M WUC 14:58
PROVIDERS: ATTEND Internal Medicine Hematology & Oncology
DX: D69.3 Immune thrombocytopenic purpura (principal)

== ENCOUNTER → 2025-06-22 | Outpatient (CLI) | payer BC ==
[2025-06-22 18:42] LABS: BASO # 0.0 10^3/uL (0.0-0.2); BASO % 0.4 % (0.0-1.0); EOS # 0.0 10^3/uL (0.0-0.5); EOS % 0.1 % (0.0-3.0); LYMPH # 3.2 10^3/uL (1.5-5.0); LYMPH % 32.1 % (24.0-44.0); MONO # 0.7 10^3/uL (0.0-0.8); MONO % 7.3 % (2.0-8.0); NEUTROPHILS # 5.9 10^3/uL (1.5-8.5); NEUTROPHILS % 59.5 % (36.0-66.0); PLATELET COUNT, AUTOMATED 145 10^3/uL (150-450)
[2025-06-22 18:43] LABS: ALT/SGPT 15 U/L (7.0-40); AST/SGOT 11 U/L (<34); CALCIUM LEVEL 9.0 MG/DL (8.5-10.1); CARBON DIOXIDE LEVEL 28 MMOL/L (20-31); CHLORIDE LEVEL 109 MMOL/L (98-107); CREATININE FOR GFR 0.78 MG/DL (0.55-1.30); GLOMERULAR FILTRATION RATE > 90.0 (>58); POTASSIUM SERUM 3.9 MMOL/L (3.5-5.1); SODIUM LEVEL 141 MMOL/L (136-145)
[2025-06-22 18:48] LABS: PTH INTACT 34.0 PG/ML (18.5-88.0)
[2025-06-22 18:51] LABS: TOTAL 25(OH) VITAMIN D 36.9 NG/ML (20.0-100.0)
== END ==
LOC: M WUC 15:02
PROVIDERS: ATTEND Physician Assistant Medical
DX: E55.9 Vitamin D deficiency, unspecified (principal); E53.8 Deficiency of other specified B group vitamins; D69.6 Thrombocytopenia, unspecified